=== PATIENT | female | born 1995 | race Caucasian/White ===

== ENCOUNTER 2017-11-16 14:04 | Emergency (ER) | payer BC ==
[~2017-11-16 14:04] MED LIST: ISOVUE-370 76%-LOCM 1 ML ONE; Iopamidol 370 76% 50 ML VIAL FS ONE
[2017-11-16] MEDS ORDERED: Ondansetron HCl/PF 4 MG/2 ML Vial ONE ×2 (14:46→17:09)
[2017-11-16 14:51] LABS: #Basophils 0.1 thou/uL (0.0-0.2); #Lymphocytes 1.2 thou/uL (1.20-3.40); #Monocytes 0.2 thou/uL (0.11-0.59); #Neutrophils 7.1 thou/uL (1.40-6.50); %Basophils 0.9 % (0.0-1.0); %Eosinophils 0.1 % (0.0-10.0); %Lymphocytes 13.8 % (21.0-51.0); %Monocytes 2.6 % (0.0-10.0); %Neutrophils 82.6 % (42.0-75.0); Hemoglobin 14.1 g/dL (12.0-16.0); Mean Corpuscular HGB CONC 32.5 g/dL (32.0-36.0); Mean Corpuscular Hemoglobin 33.5 pg (27.0-31.0); Mean Platelet Volume 7.9 fL (7.4-10.4); Platelet Count 313 thou/uL (130-400); RBC Distribution Width 11.9 % (11.5-14.5); White Blood Cell (WBC) Count 8.6 thou/uL (4.8-10.8)
[2017-11-16 15:13] LABS: ALT (SGPT) 15 U/L (8-55); AST (SGOT) 16 U/L (5-34); Albumin 4.3 g/dL (3.5-5.0); Alkaline Phosphatase 70 U/L (40-150); Anion Gap 17 mmol/L (10-20); BUN (Urea Nitrogen) 8 mg/dL (7.0-18.7); Bilirubin, Total 0.3 mg/dL (0.2-1.2); Calc. Creatinine Clearance 0 mL/min (70-130); Calcium 9.7 mg/dL (7.8-10.44); Carbon Dioxide 23 mmol/L (22-29); Chloride 102 mmol/L (98-107); Estimated GFR-MDRD Greater than 90; Globulin 3.1 g/dL (2.4-3.5); Glucose 150 mg/dL (70-105); Lipase 13 U/L (8-78); Potassium 3.9 mmol/L (3.5-5.1); Protein, Total 7.4 g/dL (6.0-8.3); Sodium 138 mmol/L (136-145)
[2017-11-16] MEDS ORDERED: Morphine 4 MG/ML Carpuject ONE (17:09)
[2017-11-16 17:17] LABS: Bilirubin Negative (Negative); Blood, Urine Negative (Negative); Clarity CLEAR (Clear); Glucose, Urine (Dipstick) Negative (Negative); Leukocyte Negative (Negative); Nitrite Negative (Negative); Protein, Urine (Dipstick) Negative (Neg-Trace); Specific Gravity, Urine 1.021 (1.002-1.036); Urobilinogen 0.2 mg/dL (0.2-1.0); pH, Urine 7.5 (5.0-9.0)
[2017-11-16 17:21] LABS: Pregnancy Test - Urine (BHCG) Negative (Negative); Pregu Control Background? CLEAR/WHITE (CLR/WHITE); Pregu Control Bar Appear? YES (CONTROL BAR); Specific Gravity 1.021 (1.002-1.036)
--- NOTE | 2017-11-16 21:05 | CT ---
CT OF ABDOMEN AND PELVIS WITH CONTRAST: Clinical history: Right lower quadrant pain. FINDINGS: A well discerned appendix is not visualized within the right lower quadrant. There is suggestion of a non-opacified tubular loop of bowel, nondilated, with a caliber of approximately 5 mm which may rela te to an unopacified appendix although this is difficult to reliably discern. No definite secondary s igns to indicate acute appendicitis are seen. No bowel obstruction. There is heterogeneous enhancemen t pattern of the liver on the basis of the phase of enhancement, which limits assessment. No focal sp lenic lesion. No evidence of hydronephrosis or adrenal mass, bilaterally. Pancreas is grossly unremar kable. The imaged lung bases reveals no evidence of consolidation. Regional skeletal structures are n on-acute in appearance. The left hemicolon is under distended with associated wall prominence. Slight pericolonic fat stranding is seen. Findings are incompletely assessed on the basis of the under dist ended and predominately unopacified left hemicolon. IMPRESSION: 1. No definite CT evidence of acute appendicitis, with detailed discussed above. 2. Under distended left hemicolon with associated wall prominence. There is a mild degree of pericolo fernando fat stranding of the descending and sigmoid colon. This could be on the basis of a colitis in the correct clinical context. This should be further discerned with clinical evaluation. POS: [facility] [place]
== END 2017-11-16 20:52 | disposition home or self-care (01) ==
LOC: ERS 14:04
DX: R11.2 Nausea with vomiting, unspecified (principal); R10.31 Right lower quadrant pain
CPT/HCPCS: 36415; 74177; 80053; 81003; 81025; 83690; 85025; 96361; 96374; 96375; 96376; J2270; J2405